=== PATIENT | male | born 1990 | race Caucasian/White ===

== ENCOUNTER 2017-09-28 08:40 | Inpatient (IN) | payer OTHER ==
[~2017-09-28] VITALS: Ht 175.3 cm; Wt 83.4 kg
[2017-09-28] MEDS ORDERED: hydrOXyzine 50MG TABLET ONE (09:03)
[2017-09-28] MEDS ORDERED: EPINEPHRINE 1 MG/ML, 1ML ONE (09:08)
[2017-09-28] MEDS ORDERED: EPINEPHRINE 1 MG/ML, 1ML IM ONE (09:30)
[2017-09-28 09:32] LABS: BASOPHILS % (AUTO) 0 % (0-1); EOSINOPHILS # (AUTO) 0.01 x10^3/uL (0-0.4); EOSINOPHILS % (AUTO) 0 % (1-7); LYMPHOCYTES # (AUTO) 0.71 x10^3/uL (1-3.4); LYMPHOCYTES % (AUTO) 5 % (22-44); MD NO; MEAN CORPUSCULAR HEMOGLOBIN 31.2 pg (27.5-34.5); MEAN CORPUSCULAR HGB CONC 33.6 g/dL (33.2-36.2); MEAN CORPUSCULAR VOLUME 92.9 fL (81-97); MEAN PLATELET VOLUME 9.3 fL (7.4-10.4); MONOCYTES # (AUTO) 0.55 x10^3/uL (0.2-0.8); MONOCYTES % (AUTO) 4 % (2-9); NEUTROPHILS # (AUTO) 11.85 x10^3/uL (1.8-6.8); NEUTROPHILS % (AUTO) 90 % (42-75); PLATELET COUNT 185 x10^3/uL (130-400); RED BLOOD COUNT 5.96 x10^6/uL (4.38-5.82); RED CELL DISTRIBUTION WIDTH 13.4 % (9.4-14.8)
[2017-09-28 09:38] LABS: ALBUMIN 3.6 g/dL (3.4-5.0); ANION GAP 10 mmol/L (5-15); CALCIUM 8.2 mg/dL (8.5-10.1); CHLORIDE 102 mmol/L (98-107); CREATININE 1.02 mg/dL (0.7-1.3)
[2017-09-28] MEDS ORDERED: hydrOXyzine 50MG TABLET PO ONE (10:00)
[2017-09-28] MEDS ORDERED: SODIUM CHLORIDE 0.9% 1,000ML IVBOLUS ONE (10:30)
[2017-09-28] MEDS ORDERED: CEFTRIAXONE PMX 1GM/50ML 50 ML IV ONE (10:30)
[2017-09-28] MEDS ORDERED: CEFTRIAXONE PMX 1GM/50ML 50 ML ONE (10:32)
[2017-09-28] MEDS ORDERED: HYDROcodone/APAP 7.5-325MG/15ML UDC ONE (10:55)
[2017-09-28] MEDS ORDERED: HYDROcodone/APAP 7.5-325MG/15ML UDC PO ONE (11:00)
[2017-09-28] MEDS ORDERED: SODIUM CHLORIDE FLUSH 10ML SYR IVF ONE (11:00)
[2017-09-28 12:42] VITALS: BP 138/71
[2017-09-28] MEDS: SODIUM CHLORIDE 0.9% 1,000 ML IV SCH ×2 (13:16→21:00)
[2017-09-28] MEDS: methylPREDNISolone SOD SUCC 125 MG/2 ML IVPush SCH ×2 (13:16→20:04)
[2017-09-28] MEDS ORDERED: OMNIPAQUE 350 MG/ML, 100ML BOTTLE ONE (14:18)
[2017-09-28 19:17] VITALS: BP 138/72
[2017-09-28] MEDS ORDERED: GUAIFENESIN/DM 100-10MG, 5ML UDC ONE (19:56)
[2017-09-28] MEDS: KETOROLAC 30 MG/1 ML IVPush PRN (20:04)
[2017-09-28] MEDS: GUAIFENESIN/DM 200-20MG, 10ML UDC PO PRN (20:05)
[2017-09-28] MEDS: DOXYCYCLINE 100MG TABLET PO SCH (22:01)
[2017-09-29 01:03] LABS: CLOSTRIDIUM DIFFICILE ANTIGEN NEGATIVE; CLOSTRIDIUM DIFFICILE TOXIN NEGATIVE (Negative)
[2017-09-29 01:12] VITALS: BP 129/66
[2017-09-29] MEDS: GUAIFENESIN/DM 200-20MG, 10ML UDC PO PRN ×3 (01:51→18:09)
[2017-09-29] MEDS: methylPREDNISolone SOD SUCC 125 MG/2 ML IVPush SCH ×2 (01:51→07:35)
[2017-09-29] MEDS: KETOROLAC 30 MG/1 ML IVPush PRN ×3 (04:02→18:26)
[2017-09-29] MEDS: SODIUM CHLORIDE 0.9% 1,000 ML IV SCH ×2 (04:13→18:10)
[2017-09-29 07:14] VITALS: BP 120/68
[2017-09-29 07:20] LABS: BASOPHILS % (AUTO) 0 % (0-1); EOSINOPHILS % (AUTO) 0 % (1-7); LYMPHOCYTES # (AUTO) 0.45 x10^3/uL (1-3.4); LYMPHOCYTES % (AUTO) 3 % (22-44); MD NO; MEAN CORPUSCULAR HEMOGLOBIN 31.4 pg (27.5-34.5); MEAN CORPUSCULAR HGB CONC 33.8 g/dL (33.2-36.2); MEAN CORPUSCULAR VOLUME 92.8 fL (81-97); MEAN PLATELET VOLUME 9.4 fL (7.4-10.4); MONOCYTES # (AUTO) 0.39 x10^3/uL (0.2-0.8); MONOCYTES % (AUTO) 3 % (2-9); NEUTROPHILS # (AUTO) 13.81 x10^3/uL (1.8-6.8); NEUTROPHILS % (AUTO) 94 % (42-75); PLATELET COUNT 189 x10^3/uL (130-400); RED BLOOD COUNT 4.95 x10^6/uL (4.38-5.82); RED CELL DISTRIBUTION WIDTH 13.3 % (9.4-14.8)
[2017-09-29 07:23] LABS: ALBUMIN 2.7 g/dL (3.4-5.0); ANION GAP 8 mmol/L (5-15); CALCIUM 7.9 mg/dL (8.5-10.1); CHLORIDE 109 mmol/L (98-107); CREATININE 0.81 mg/dL (0.7-1.3)
[2017-09-29] MEDS: DOXYCYCLINE 100MG TABLET PO SCH ×2 (08:36→21:35)
[2017-09-29] MEDS ORDERED: SODIUM PHOSPHATE 4 MEQ/ML IV SCH (09:30)
[2017-09-29] MEDS ORDERED: SODIUM PHOSPHATE 30 MMOL in SODIUM CHLORIDE 0.9% 500 ML IV ONE (09:30)
[2017-09-29] MEDS: CEFTRIAXONE 2 GM in DEXTROSE 5% 50 ML IV SCH (09:57)
[2017-09-29] MEDS ORDERED: CEFTRIAXONE PMX 2GM/50ML 50 ML IV SCH (10:00)
[2017-09-29] MEDS: GUAIFENESIN 200 MG TABLET PO SCH ×3 (11:50→21:36)
[2017-09-29] MEDS: DIPHENHYDRAMINE 25 MG CAPSULE PO PRN ×3 (13:31→21:35)
[2017-09-29 14:30] VITALS: BP 120/77
[2017-09-29 18:54] VITALS: BP 125/78
[2017-09-29] MEDS: TEMAZEPAM 30 MG CAPSULE PO PRN (21:36)
[2017-09-30] MEDS: SODIUM CHLORIDE 0.9% 1,000 ML IV SCH ×3 (02:09→19:55)
[2017-09-30] MEDS: KETOROLAC 30 MG/1 ML IVPush PRN (02:09)
[2017-09-30 02:16] VITALS: BP 119/51
[2017-09-30] MEDS: DIPHENHYDRAMINE 25 MG CAPSULE PO PRN (05:22)
[2017-09-30 05:59] LABS: ALBUMIN 2.5 g/dL (3.4-5.0); ANION GAP 10 mmol/L (5-15); CALCIUM 7.5 mg/dL (8.5-10.1); CHLORIDE 110 mmol/L (98-107)
[2017-09-30] MEDS: GUAIFENESIN 200 MG TABLET PO SCH ×7 (06:00→21:25)
[2017-09-30 06:07] LABS: CREATININE 0.76 mg/dL (0.7-1.3)
[2017-09-30 06:14] LABS: BASOPHILS # (AUTO) 0.01 x10^3/uL (0-0.1); BASOPHILS % (AUTO) 0 % (0-1); EOSINOPHILS # (AUTO) 0.01 x10^3/uL (0-0.4); EOSINOPHILS % (AUTO) 0 % (1-7); LYMPHOCYTES # (AUTO) 0.78 x10^3/uL (1-3.4); LYMPHOCYTES % (AUTO) 8 % (22-44); MD NO; MEAN CORPUSCULAR HGB CONC 34.3 g/dL (33.2-36.2); MEAN CORPUSCULAR VOLUME 93.2 fL (81-97); MEAN PLATELET VOLUME 9.1 fL (7.4-10.4); MONOCYTES # (AUTO) 0.03 x10^3/uL (0.2-0.8); MONOCYTES % (AUTO) 0 % (2-9); NEUTROPHILS # (AUTO) 8.56 x10^3/uL (1.8-6.8); NEUTROPHILS % (AUTO) 91 % (42-75); PLATELET COUNT 209 x10^3/uL (130-400); RED BLOOD COUNT 4.72 x10^6/uL (4.38-5.82); RED CELL DISTRIBUTION WIDTH 13.7 % (9.4-14.8)
[2017-09-30 09:01] VITALS: BP 128/76
[2017-09-30] MEDS: methylPREDNISolone SOD SUCC 125 MG/2 ML IVPush SCH ×3 (09:57→21:25)
[2017-09-30] MEDS ORDERED: FAMOTIDINE 20 MG/2 ML IVPush ONE (10:00)
[2017-09-30] MEDS: CEFTRIAXONE 2 GM in DEXTROSE 5% 50 ML IV SCH (10:27)
[2017-09-30 15:35] VITALS: BP 127/75
[2017-09-30] MEDS: TEMAZEPAM 30 MG CAPSULE PO PRN (21:25)
[2017-10-01] MEDS: GUAIFENESIN/DM 200-20MG, 10ML UDC PO PRN (00:29)
[2017-10-01 03:41] VITALS: BP 157/89
[2017-10-01] MEDS: SODIUM CHLORIDE 0.9% 1,000 ML IV SCH ×2 (03:41→13:03)
[2017-10-01] MEDS: methylPREDNISolone SOD SUCC 125 MG/2 ML IVPush SCH (04:18)
[2017-10-01] MEDS: ALUMINUM/MAG/SIMETHICONE 30 ML UDC PO PRN ×2 (04:18→09:04)
[2017-10-01 05:51] LABS: BASOPHILS # (AUTO) 0.01 x10^3/uL (0-0.1); BASOPHILS % (AUTO) 0 % (0-1); EOSINOPHILS % (AUTO) 0 % (1-7); LYMPHOCYTES # (AUTO) 0.34 x10^3/uL (1-3.4); LYMPHOCYTES % (AUTO) 3 % (22-44); MD NO; MEAN CORPUSCULAR HEMOGLOBIN 31.3 pg (27.5-34.5); MEAN CORPUSCULAR HGB CONC 33.5 g/dL (33.2-36.2); MEAN CORPUSCULAR VOLUME 93.3 fL (81-97); MEAN PLATELET VOLUME 8.8 fL (7.4-10.4); MONOCYTES # (AUTO) 0.32 x10^3/uL (0.2-0.8); MONOCYTES % (AUTO) 3 % (2-9); NEUTROPHILS # (AUTO) 10.37 x10^3/uL (1.8-6.8); NEUTROPHILS % (AUTO) 94 % (42-75); PLATELET COUNT 222 x10^3/uL (130-400); RED CELL DISTRIBUTION WIDTH 13.5 % (9.4-14.8)
[2017-10-01 05:57] LABS: CHLORIDE 109 mmol/L (98-107)
[2017-10-01] MEDS: GUAIFENESIN 200 MG TABLET PO SCH ×4 (06:09→20:09)
[2017-10-01 06:11] LABS: ALANINE AMINOTRANSFERASE 26 U/L (12-78); ALBUMIN 2.4 g/dL (3.4-5.0); ALKALINE PHOSPHATASE 51 U/L (45-117); ANION GAP 8 mmol/L (5-15); BILIRUBIN,TOTAL 0.4 mg/dL (0.2-1.0); CALCIUM 7.9 mg/dL (8.5-10.1); CREATININE 0.68 mg/dL (0.7-1.3); TOTAL PROTEIN 5.8 g/dL (6.4-8.2)
[2017-10-01 07:16] VITALS: BP 119/68
[2017-10-01] MEDS ORDERED: SODIUM PHOSPHATE 4 MEQ/ML IV SCH (09:00)
[2017-10-01] MEDS ORDERED: SODIUM PHOSPHATE 40 MEQ in SODIUM CHLORIDE 0.9% 500 ML IV ONE (09:30)
[2017-10-01] MEDS ORDERED: CEFTRIAXONE PMX 2GM/50ML 50 ML IV SCH (11:00)
[2017-10-01] MEDS: predniSONE 50MG TABLET PO SCH (11:50)
[2017-10-01] MEDS: FAMOTIDINE 20 MG/2 ML IVPush SCH ×2 (11:51→20:09)
[2017-10-01] MEDS: DOXYCYCLINE 100MG TABLET PO SCH ×2 (11:52→20:09)
[2017-10-01 12:07] VITALS: BP 139/93
[2017-10-01 19:33] VITALS: BP 130/75
[2017-10-01] MEDS: TEMAZEPAM 30 MG CAPSULE PO PRN (20:09)
[2017-10-02 02:08] VITALS: BP 125/74
[2017-10-02] MEDS: SODIUM CHLORIDE 0.9% 1,000 ML IV SCH (03:46)
[2017-10-02] MEDS: GUAIFENESIN 200 MG TABLET PO SCH ×3 (06:00→15:41)
[2017-10-02 06:03] LABS: ALBUMIN 2.4 g/dL (3.4-5.0); ANION GAP 6 mmol/L (5-15); CALCIUM 7.9 mg/dL (8.5-10.1); CHLORIDE 108 mmol/L (98-107); CREATININE 0.69 mg/dL (0.7-1.3)
[2017-10-02 06:04] LABS: BASOPHILS # (AUTO) 0.03 x10^3/uL (0-0.1); BASOPHILS % (AUTO) 0 % (0-1); EOSINOPHILS # (AUTO) 0.01 x10^3/uL (0-0.4); EOSINOPHILS % (AUTO) 0 % (1-7); LYMPHOCYTES # (AUTO) 1.24 x10^3/uL (1-3.4); LYMPHOCYTES % (AUTO) 9 % (22-44); MD NO; MEAN CORPUSCULAR HGB CONC 34.3 g/dL (33.2-36.2); MEAN CORPUSCULAR VOLUME 93.3 fL (81-97); MEAN PLATELET VOLUME 8.3 fL (7.4-10.4); MONOCYTES # (AUTO) 0.81 x10^3/uL (0.2-0.8); MONOCYTES % (AUTO) 6 % (2-9); NEUTROPHILS # (AUTO) 11.81 x10^3/uL (1.8-6.8); NEUTROPHILS % (AUTO) 85 % (42-75); PLATELET COUNT 260 x10^3/uL (130-400); RED BLOOD COUNT 4.59 x10^6/uL (4.38-5.82); RED CELL DISTRIBUTION WIDTH 13.8 % (9.4-14.8)
[2017-10-02 06:35] VITALS: BP 122/75
[2017-10-02] MEDS: predniSONE 50MG TABLET PO SCH (07:52)
[2017-10-02] MEDS: DOXYCYCLINE 100MG TABLET PO SCH (07:52)
[2017-10-02] MEDS: FAMOTIDINE 20 MG/2 ML IVPush SCH (07:53)
[2017-10-02] MEDS ORDERED: POTASSIUM CHLORIDE 20 MEQ TAB.ER.PRT PO ONE (08:30)
[2017-10-02] MEDS ORDERED: AZITHROMYCIN 500 MG TABLET PO ONE (09:00)
[2017-10-02] MEDS ORDERED: CEFTRIAXONE PMX 2GM/50ML 50 ML IV SCH (09:00)
[2017-10-02] MEDS: NEUTRA PHOS K 250 MG TABLET PO SCH ×2 (09:59→15:41)
[2017-10-02] MEDS ORDERED: DOXY100T PO (10:27)
[2017-10-02] MEDS ORDERED: GUAI200T3 PO (10:27)
[2017-10-02] MEDS ORDERED: CEFD300C37 PO (10:27)
[2017-10-02] MEDS ORDERED: DIPH25CA61 PO (10:35)
[2017-10-02] MEDS ORDERED: FAMO20TA7 PO (10:35)
[2017-10-02] MEDS ORDERED: PRED10TA PO (10:38)
[2017-10-02 12:18] VITALS: BP 128/74
== END 2017-10-02 16:30 | disposition home or self-care (01) | DRG 871 ==
LOC: ED 09:59 → 4NOR 11:03 → ED 12:04 → 4NOR 09-29 18:34
PROVIDERS: ADMIT Hospitalist; ATTEND Hospitalist
DX: A41.9 Sepsis, unspecified organism (principal); E43 Unspecified severe protein-calorie malnutrition; J18.0 Bronchopneumonia, unspecified organism; D75.1 Secondary polycythemia; E83.39 Other disorders of phosphorus metabolism; E87.1 Hypo-osmolality and hyponatremia; I10 Essential (primary) hypertension; L50.9 Urticaria, unspecified; Z80.3 Family history of malignant neoplasm of breast; Z87.891 Personal history of nicotine dependence; R91.1 Solitary pulmonary nodule; R21 Rash and other nonspecific skin eruption; Z68.27 Body mass index [BMI] 27.0-27.9, adult
CPT/HCPCS: 36415; 71046; 71275; 80048; 80053; 80074; 81003; 82040; 83605; 83735; 84100; 85025; 85379; 85651; 86140; 86160; 86161; 87040; 87070; 87205; 87324; 87491; 87591; 87806; 93005; 96365; 96372; J0171; J0696; J1885; Q9967; G0475; J2930; J7030; J7040; J7512; Q0163; S0028

== ENCOUNTER 2018-10-22 05:49 | Emergency (ER) | payer MEDICAID, OTHER ==
[~2018-10-22] VITALS: Ht 175.3 cm; Wt 75.0 kg
[~2018-10-22 05:49] MED LIST: CEFD300C37 PO; DIPH25CA61 PO; DOXY100T PO; FAMO20TA7 PO; GUAI200T3 PO; PRED10TA PO
--- NOTE | 2018-10-22 06:15 | NUR ---
PT TO ROOM AT THIS TIME.
--- NOTE | 2018-10-22 06:31 | NUR ---
PT STATED HE TOOK KRATON CAPULES YESTERDAY, THEN HAD SEIZURES. SEIZURE PADS PLACED ON MARLO F[place]TAINE IN HOSPITAL GOWN. PT VSS. WILL CONTIUE TO MONITOR.
--- NOTE | 2018-10-22 07:07 | NUR ---
REPORT TO VÍCTOR VASQUES.
--- NOTE | 2018-10-22 07:10 | NUR ---
BEDSIDE REPORT FROM ANAND VASQUES. WITH ASSESSMENT:NO NEURO DEFICITS NOTED HOWEVER, PATIENT REPORTS "ON EDGE/ANXIETY AT 7"-PRVIDER MADE AWARE VITALS STABLE ON POX/NIBP SEIZURE PRECAUTIONS IN PLACE MOTHER AT BEDSIDE
[2018-10-22 07:15] LABS: BASOPHILS # (AUTO) 0.03 x10^3/uL (0-0.1); BASOPHILS % (AUTO) 0 % (0-1); EOSINOPHILS % (AUTO) 1 % (1-7); LYMPHOCYTES # (AUTO) 2.37 x10^3/uL (1-3.4); LYMPHOCYTES % (AUTO) 24 % (22-44); MD NO; MEAN CORPUSCULAR HEMOGLOBIN 29.8 pg (27.5-34.5); MEAN CORPUSCULAR HGB CONC 33.3 g/dL (33.2-36.2); MEAN CORPUSCULAR VOLUME 89.4 fL (81-97); MEAN PLATELET VOLUME 7.8 fL (7.4-10.4); MONOCYTES # (AUTO) 0.67 x10^3/uL (0.2-0.8); MONOCYTES % (AUTO) 7 % (2-9); NEUTROPHILS # (AUTO) 6.65 x10^3/uL (1.8-6.8); NEUTROPHILS % (AUTO) 68 % (42-75); PLATELET COUNT 346 x10^3/uL (130-400); RED BLOOD COUNT 5.35 x10^6/uL (4.38-5.82); RED CELL DISTRIBUTION WIDTH 14.9 % (9.4-14.8)
[2018-10-22 07:25] LABS: ALBUMIN 4.3 g/dL (3.4-5.0); ANION GAP 7 mmol/L (5-15); CALCIUM 9.8 mg/dL (8.5-10.1); CHLORIDE 105 mmol/L (98-107)
[2018-10-22 07:29] LABS: ALANINE AMINOTRANSFERASE 19 U/L (12-78); ALKALINE PHOSPHATASE 93 U/L (45-117); BILIRUBIN,TOTAL 0.5 mg/dL (0.2-1.0); CREATININE 1.04 mg/dL (0.7-1.3); TOTAL PROTEIN 8.3 g/dL (6.4-8.2)
[2018-10-22 07:33] VITALS: BP 107/65
--- NOTE | 2018-10-22 07:35 | NUR ---
received report from Raj VASQUES. pt upright on gurney awake & calm, responds approp to staff, NAD, comfort measures provided, mom at BS, call light within reach. pt to CT.
--- NOTE | 2018-10-22 08:00 | NUR ---
pt returned from CT
--- NOTE | 2018-10-22 08:15 | NUR ---
PT AMBULATED WITH NO DIZZINESS OR DISCOMFORT. BACK IN BED SIDE RAILS UP X2 CALL LIGHT IN PLACE. Addendum: 10/22/18 at 0819 by [email or web address] PT AMBULATED WITH NO DIZZINESS OR DISCOMFORT. BACK IN BED SIDE RAILS UP X2 CALL LIGHT IN PLACE. NOTIFIED OF SUCCESSFUL AMBULATION.
--- NOTE | 2018-10-22 08:15 | NUR ---
charting by student nurse verified by this RN
[2018-10-22] MEDS ORDERED: LORazepam 1MG TABLET ONE (08:53)
[2018-10-22] MEDS ORDERED: LORazepam 1MG TABLET PO ONE (09:00)
--- NOTE | 2018-10-22 09:01 | NUR ---
Patient & mom given discharge instructions and they have confirmed that they understand the instructions. Patient ambulatory with steady gait.
== END 2018-10-22 09:01 ==
LOC: ED 08:55
DX: R55 Syncope and collapse (principal); R51 Headache
CPT/HCPCS: 36415; 70450; 71045; 80053; 85025; 93005; 99284

== ENCOUNTER 2020-06-21 19:24 | Emergency (ER) | payer MEDICAID, OTHER ==
[~2020-06-21] VITALS: Ht 175.3 cm; Wt 99.4 kg
[~2020-06-21 19:24] MED LIST changes: -GUAI200T3 PO; +GUAI200T37 PO
[2020-06-21] MEDS ORDERED: THIAMINE 100MG TABLET PO ONE (20:00)
[2020-06-21] MEDS ORDERED: LORazepam 1MG TABLET PO ONE (20:00)
[2020-06-21] MEDS ORDERED: LORazepam 1MG TABLET ONE (20:01)
[2020-06-21] MEDS ORDERED: THIAMINE 100MG TABLET ONE (20:01)
--- NOTE | 2020-06-21 20:42 | NUR ---
CC OF ANXIETY AND WANTING TO DETOX FROM ETOH. PT STATES HE HAS BEEN DRINKING ABOUT 25 SHOTS/DAY FOR THE PAST TWO WEEKS BUT PRIOR TO THAT HE WASN'T DRINKING MUCH. PT ADMITS TO FEELING STRESSED OUT ABOUT THINGS IN HIS PERSONAL LIFE BUT WANTS TO STOP.
--- NOTE | 2020-06-21 20:43 | NUR ---
PT STATES HE FEELS BETTER AFTER MEDICATION ADMINISTRATION. AT BEDSIDE
[2020-06-21 21:00] VITALS: BP 150/81
== END 2020-06-21 21:35 | disposition home or self-care (01) ==
LOC: ED 20:00
DX: F10.10 Alcohol abuse, uncomplicated (principal); F41.9 Anxiety disorder, unspecified; R42 Dizziness and giddiness; R00.0 Tachycardia, unspecified; F17.200 Nicotine dependence, unspecified, uncomplicated; Y90.0 Blood alcohol level of less than 20 mg/100 ml
CPT/HCPCS: 93005; 99283

== ENCOUNTER 2021-03-13 15:00 | Inpatient (IN) | payer BC, MEDICAID ==
[~2021-03-13] VITALS: Ht 175.3 cm; Wt 100.4 kg
[2021-03-18 07:48] VITALS: BP 131/47
== END 2021-03-18 10:13 | disposition home or self-care (01) | DRG 885 ==
LOC: 3E 20:44
PROVIDERS: ADMIT Psychiatry & Neurology Psychosomatic Medicine; ATTEND Psychiatry & Neurology Psychosomatic Medicine
DX: F33.2 Major depressive disorder, recurrent severe without psychotic features (principal); F11.20 Opioid dependence, uncomplicated; R45.851 Suicidal ideations; S61.512A Laceration without foreign body of left wrist, initial encounter; S61.511A Laceration without foreign body of right wrist, initial encounter; F10.10 Alcohol abuse, uncomplicated; G47.00 Insomnia, unspecified; X78.1XXA Intentional self-harm by knife, initial encounter; F17.210 Nicotine dependence, cigarettes, uncomplicated; G89.29 Other chronic pain; Z79.899 Other long term (current) drug therapy; Y93.89 Activity, other specified; Y92.89 Other specified places as the place of occurrence of the external cause; Y99.8 Other external cause status
CPT/HCPCS: 36415; J0574